=== PATIENT | female | born 1960 | race Caucasian/White ===

== ENCOUNTER 2021-12-20 21:57 | Day surgery (SDCO) | payer OTHER ==
[~2021-12-20] VITALS: Ht 165.1 cm; Wt 82.3 kg
[2021-12-20 23:50] LABS: BILIRUBIN 1+ mg/dL (NEGATIVE); BLOOD NEGATIVE Ery/uL (NEGATIVE); CLARITY CLEAR (CLEAR); COLOR YELLOW (YELLOW); GLUCOSE (U) NORMAL (NORMAL); LEUKOCYTES NEGATIVE Leu/uL (NEGATIVE); NITRITE POSITIVE (NEGATIVE); PROTEIN TRACE (LOW) mg/dL (NEGATIVE)
[2021-12-20 23:52] LABS: BASOPHIL 0.5 % (0-2); HCT 27.8 % (37.0-47.0); HGB 8.5 g/dl (12.5-16.0); LYMPHOCYTE 8.4 % (15-48); MCH 21.9 pg (25.0-31.0); MCHC 30.6 g/dL (32.0-36.0); MCV 71.5 fL (78.0-100.0); MONOCYTE 7.5 % (0-12); MPV 11.1 fL (6.0-9.5); NEUTROPHIL 82.3 % (41-80); NRBC 0; PLT 199 K/uL (150-400); RBC 3.89 M/uL (4.20-5.40); RDW 18.2 % (11.5-14.0)
[2021-12-21 00:01] LABS: BACTERIA 1+
[2021-12-21 00:03] LABS: TRANSITIONAL EPITHELIAL CELLS RARE
[2021-12-21 00:06] LABS: ALBUMIN 2.7 g/dL (3.4-5.0); BILIRUBIN - TOTAL 0.9 mg/dL (0.2-1.0); BUN/CREAT RATIO (CALC) 20.3 RATIO; CREATININE 0.64 mg/dL (0.51-0.95); POTASSIUM 3.3 mmol/L (3.5-5.1); TOTAL PROTEIN 6.7 g/dL (6.4-8.2)
[2021-12-21] MEDS ORDERED: SINGULAIR10 MG PO (06:15)
[2021-12-21] MEDS ORDERED: METFORMIN HCL1000 MG PO (06:16)
[2021-12-21] MEDS ORDERED: VALSARTAN-HCTZ1 EAC1 PO (06:16)
[2021-12-21] MEDS ORDERED: PROTONIX 40MG T40 MG PO (06:16)
[2021-12-21] MEDS ORDERED: REGLAN5 MG PO (06:17)
[2021-12-21] MEDS ORDERED: LIPITOR20 MG PO (06:17)
[2021-12-21] MEDS ORDERED: REQUIP1 MG PO (06:17)
[2021-12-21] MEDS ORDERED: VITAMIN D21250 MCG PO (06:18)
[2021-12-21] MEDS ORDERED: LYRICA75 MG PO (06:19)
[2021-12-21] MEDS ORDERED: LYRICA25 MG PO (06:20)
[2021-12-21] MEDS ORDERED: PROZAC20 MG PO (06:21)
[2021-12-21] MEDS ORDERED: CLARITIN10 M2 PO (06:48)
[2021-12-21] MEDS ORDERED: ASPIRIN EC81 MG PO (06:48)
[2021-12-21] MEDS ORDERED: CRANBERRY250 MG PO (06:49)
[2021-12-21] MEDS ORDERED: VITAMIN B-121000 MC1 PO (06:49)
[2021-12-21] MEDS ORDERED: PROBIOTIC1 EAC1 PO (06:49)
[2021-12-21 07:17] LABS: BASOPHIL 0.5 % (0-2); EOSINOPHIL 1.4 % (0-5); HCT 27.4 % (37.0-47.0); HGB 8.4 g/dl (12.5-16.0); LYMPHOCYTE 11.2 % (15-48); MCH 22.2 pg (25.0-31.0); MCHC 30.7 g/dL (32.0-36.0); MCV 72.3 fL (78.0-100.0); MONOCYTE 7.4 % (0-12); MPV 11.1 fL (6.0-9.5); NEUTROPHIL 79.1 % (41-80); NRBC 0; PLT 178 K/uL (150-400); RBC 3.79 M/uL (4.20-5.40); RDW 18.2 % (11.5-14.0); WBC 14.1 K/uL (4.0-10.5)
[2021-12-21 07:22] LABS: IRON % SATURATION 4.8 %SAT (20-50)
[2021-12-21 07:50] LABS: ALBUMIN 2.5 g/dL (3.4-5.0); BILIRUBIN - TOTAL 0.7 mg/dL (0.2-1.0); C-REACTIVE PROTEIN 8.1 mg/dL (<=0.90); CREATININE 0.58 mg/dL (0.51-0.95); GLOBULIN (CALCULATION) 3.9 g/dL; MAGNESIUM 1.6 mg/dL (1.8-2.4); POTASSIUM 3.3 mmol/L (3.5-5.1); TOTAL PROTEIN 6.4 g/dL (6.4-8.2)
[2021-12-21 09:25] LABS: INR 1.5 (0.9-1.2); PROTHROMBIN TIME 17.4 SECONDS (11.8-13.4); PTT 47.7 SECONDS (24.4-34.7)
--- NOTE | 2021-12-21 15:25 | NUR ---
12/21/21 Ms. Bauer lives at home with her spouse whom she assit with his care needs. They have 2 children that are supportive. Ms. Bauer is independent in the home and community. PCP = Dionne Christy. No discharge planning needs are anticipated.
[2021-12-21 15:54] LABS: WBC (FLUID) 307 WBC/uL
[2021-12-21 16:01] LABS: COLOR (FLUID) YELLOW
[2021-12-21 16:02] LABS: CLARITY (FLUID) CLEAR; RBC (FLUID) 1250 RBC/uL
[2021-12-22 07:01] LABS: BASOPHIL 0.5 % (0-2); EOSINOPHIL 0.7 % (0-5); HCT 29.5 % (37.0-47.0); HGB 8.7 g/dl (12.5-16.0); LYMPHOCYTE 7.7 % (15-48); MCH 21.9 pg (25.0-31.0); MCHC 29.5 g/dL (32.0-36.0); MCV 74.1 fL (78.0-100.0); MONOCYTE 5.1 % (0-12); NEUTROPHIL 85.4 % (41-80); NRBC 0; PLT 186 K/uL (150-400); RBC 3.98 M/uL (4.20-5.40); RDW 18.6 % (11.5-14.0); WBC 14.5 K/uL (4.0-10.5)
[2021-12-22 07:16] LABS: ALBUMIN 2.6 g/dL (3.4-5.0); BILIRUBIN - DIRECT 0.3 mg/dL (0.00-0.20); BILIRUBIN - TOTAL 0.8 mg/dL (0.2-1.0); BUN/CREAT RATIO (CALC) 21.2 RATIO; CREATININE 0.52 mg/dL (0.51-0.95); GLOBULIN (CALCULATION) 3.9 g/dL; TOTAL PROTEIN 6.5 g/dL (6.4-8.2)
[2021-12-22] MEDS ORDERED: MACROBID100 MG PO (12:23)
[2021-12-24 21:08] LABS: ADENOVIRUS F 40/41 Not Detected (Not Detected); ASTROVIRUS Not Detected (Not Detected); C DIFFICILE TOXIN A/B Not Detected (Not Detected); CAMPYLOBACTER Not Detected (Not Detected); CRYPTOSPORIDIUM Not Detected (Not Detected); CYCLOSPORA CAYETANENSIS Not Detected (Not Detected); ENTAMOEBA HISTOLYTICA Not Detected (Not Detected); ENTEROAGGREGATIVE E COLI Not Detected (Not Detected); ENTEROPATHOGENIC E COLI Not Detected (Not Detected); ENTEROTOXIGENIC E COLI Not Detected (Not Detected); GIARDIA LAMBLIA Not Detected (Not Detected); NOROVIRUS GI/GII Not Detected (Not Detected); PLESIOMONAS SHIGELLOIDES Not Detected (Not Detected); ROTAVIRUS A Not Detected (Not Detected); SALMONELLA Not Detected (Not Detected); SAPOVIRUS Not Detected (Not Detected); SHIGA-TOXIN-PRODUCING E COLI Not Detected (Not Detected); SHIGELLA/ENTEROINVASIVE E COLI Not Detected (Not Detected); VIBRIO Not Detected (Not Detected); VIBRIO CHOLERAE Not Detected (Not Detected); YERSINIA ENTEROCOLITICA Not Detected (Not Detected)
== END 2021-12-22 14:39 | disposition home or self-care (01) ==
LOC: FER 21:57 → FMS 12-21 03:27
PROVIDERS: Emergency Medicine; Family Medicine; Nurse Practitioner Acute Care; ADMIT Internal Medicine
DX: R18.8 Other ascites (principal); K52.9 Noninfective gastroenteritis and colitis, unspecified; D50.9 Iron deficiency anemia, unspecified; E87.6 Hypokalemia; E83.42 Hypomagnesemia; R79.89 Other specified abnormal findings of blood chemistry; K76.0 Fatty (change of) liver, not elsewhere classified; N39.0 Urinary tract infection, site not specified; K76.6 Portal hypertension; I85.00 Esophageal varices without bleeding; E46 Unspecified protein-calorie malnutrition; I10 Essential (primary) hypertension; E11.40 Type 2 diabetes mellitus with diabetic neuropathy, unspecified; J45.998 Other asthma
CPT/HCPCS: 36415; 80048; 80053; 80076; 81001; 82728; 82945; 83540; 83550; 83690; 83735; 84157; 85025; 85610; 85730; 86140; 87070; 87088; 87205; 87449; 89051; 94010; G0378; J0696; J1170; J2405; J2916; J3475; J7030; Q9967